=== PATIENT | male | born 1990 | race Hispanic/Latino ===

== ENCOUNTER 2023-11-18 16:35 | Emergency (ER) | payer SELFPAY ==
[~2023-11-18] VITALS: Ht 188 cm; Wt 113.4 kg
[2023-11-18 17:19] LABS: BASOPHILS # (AUTO) 0.03 K/uL (0.00-0.20); BASOPHILS % (AUTO) 0.4 % (0.0-5.0); EOSINOPHILS # (AUTO) 0.28 K/uL (0.00-0.70); EOSINOPHILS % (AUTO) 3.4 % (0.0-8.0); HEMATOCRIT 41.7 % (42-54); IMMATURE GRANULOCYTE ABSOLUTE 0.02 K/uL (0-1); LYMPHOCYTES # (AUTO) 1.5 K/uL (1.0-4.8); LYMPHOCYTES % (AUTO) 18.6 % (21.0-51.0); MEAN CORPUSCULAR HEMOGLOBIN 29.9 pg (27.0-33.0); MEAN CORPUSCULAR HGB CONC 33.8 g/dL (32.0-36.0); MEAN CORPUSCULAR VOLUME 88.3 fL (79-99); MONOCYTES # (AUTO) 0.6 K/uL (0.1-1.0); MONOCYTES % (AUTO) 7.2 % (3.0-13.0); NEUTROPHILS # (AUTO) 5.7 K/uL (1.8-7.7); NEUTROPHILS % (AUTO) 70.2 % (40.0-77.0); PLATELET COUNT (AUTO) 245 K/uL (130-400); RED BLOOD CELL COUNT(AUTO) 4.72 MIL/uL (4.50-6.20); RED CELL DISTRIBUTION WIDTH 12.2 % (11.0-15.5); WHITE BLOOD COUNT (AUTO) 8.2 K/uL (4.8-10.8)
[2023-11-18 17:38] LABS: CREATININE 1.3 mg/dL (0.5-1.3); POTASSIUM 3.7 mmol/L (3.5-5.1)
[2023-11-18] MEDS: CLINDAMYCIN 150 MG CAP PO ONE (18:15)
[2023-11-18] MEDS: HYDROcodone/APAP 5/325 1 TAB TABLET PO ONE (18:15)
[2023-11-18] MEDS: LIDOCAINE HCL 1% 20 ML VIAL INJ SCH (19:10)
[2023-11-18] MEDS ORDERED: CLIN-141 PO (19:53)
[2023-11-18 20:02] VITALS: BP 128/74; PULSE 72; RESP 20; TEMP 98.4; O2SAT 99
== END 2023-11-18 20:10 | disposition home or self-care (01) ==
LOC: EDH 16:35
DX: L02.212 Cutaneous abscess of back [any part, except buttock and flank] (principal); E66.9 Obesity, unspecified; Z90.49 Acquired absence of other specified parts of digestive tract; Z68.30 Body mass index [BMI] 30.0-30.9, adult
CPT/HCPCS: 10060; 36415; 76604; 80048; 85025; 87070; 87076